=== PATIENT | female | born 1935 | race Caucasian/White ===

== ENCOUNTER → 2017-03-06 | Outpatient (CLI) | payer MEDICARE, BC | LOC: COL.LAB 15:06 | DX: Z01.812 Encounter for preprocedural laboratory examination (principal); M25.852 Other specified joint disorders, left hip ==

== ENCOUNTER → 2018-12-21 | Outpatient (CLI) | payer MEDICARE, BC | LOC: ZCOL.LAB 16:24 | DX: J32.0 Chronic maxillary sinusitis (principal) ==

== ENCOUNTER → 2020-08-21 | Outpatient (CLI) | payer MEDICARE, BC | LOC: ZCOL.LAB 16:26 | DX: J32.0 Chronic maxillary sinusitis (principal) ==